=== PATIENT | female | born 1970 | race African-American/Black ===

== ENCOUNTER 2019-11-19 15:26 | Emergency (ER) | payer BC, SELFPAY ==
[2019-11-19 15:35] VITALS: BP 146/81; PULSE 73; RESP 18; TEMP 37.4; O2SAT 100
[2019-11-19 15:43] VITALS: O2SAT 100
[2019-11-19 16:17] VITALS: PULSE 73
[2019-11-19] MEDS: PHENYTOIN SODIUM 100 MG CAP 200 MG PO (16:25)
[2019-11-19 16:38] LABS: Basophils Percent Auto 0.5 % (0.2-1.2); Eosinophils Absolute Auto 0.1 K/mm3 (0-0.3); Eosinophils Percent Auto 0.9 % (0-4.4); Hematocrit 36.5 % (37.0-47.0); Hemoglobin 11.7 g/dL (12.0-15.0); Immature Granulocyte Absolute 0.01 K/mm3 (0.00-0.031); Immature Granulocyte Percent A 0.2 % (0-0.5); Lymphocytes Absolute Auto 2.45 K/mm3 (0.9-3.2); Lymphocytes Percent Auto 38.5 % (18.3-44.2); Mean Corpuscular HGB Conc 32.1 g/dl (32-36); Mean Corpuscular Volume 90.6 fl (80-100); Mean Platelet Volume 9.4 fl (7.4-10.4); Monocytes Absolute Auto 0.6 K/mm3 (0.1-0.6); Monocytes Percent Auto 8.6 % (2.6-8.5); Neutrophils Absolute Auto 3.3 K/mm3 (1.3-6.7); Neutrophils Percent Auto 51.3 % (45.5-73.1); Platelet Count Result 251 k/mm3 (150-375); Red Blood Count 4.03 M/mm3 (4.2-5.4); Red Cell Distribution Width 13.8 % (11.5-14.5); White Blood Count 6.4 K/mm3 (4.5-10.0)
[2019-11-19 16:52] LABS: Alanine Aminotransferase 14 U/L (4-35); Albumin Level 4.4 g/dL (3.5-5.1); Alkaline Phosphatase 105 U/L (38-126); Aspartate Amino Transferase 21 U/L (14-36); Bilirubin,Total 0.2 mg/dL (0.2-1.3); Blood Urea Nitrogen 11 mg/dL (7-17); Calcium 8.6 mg/dL (8.4-10.2); Carbon Dioxide 24 mmol/L (22-30); Chloride 107 mmol/L (98-107); Estimated CRCL calculation 120 ml/min; Estimated Glomerular Filt Rate > 60; Glucose 102 mg/dL (65-105); Phenytoin Dilantin 8 ug/mL (10-20); Potassium 4.1 mmol/L (3.4-5.0); Sodium 136 mmol/L (137-145)
--- NOTE | 2019-11-19 17:29 | ED.SEIZURE ---
HPI - Seizure General Chief Complaint: Seizure Stated Complaint: pre-seizure feeling Time Seen by Provider: 11/19/19 15:58 Source: patient Mode of arrival: ambulatory Limitations: no limitations History of Present Illness HPI Narrative: This is a 49-year-old female that presents the emergency department for medication refill. Reports she has history of seizures for which she takes phenytoin. She sees a neurologist, but [place]. Reports she ran out of her medication yesterday. Reports today she had a feeling that she might have a seizure so she came to be seen. Reports her last seizure was a month ago. Denies fever, chest pain, shortness of breath, abdominal pain, vomiting, numbness or weakness. Seizure History: Yes Related Data Home Medications Medication Instructions Recorded Confirmed phenytoin sodium extended 200 PO BID 11/19/19 Allergies Allergy/AdvReac Type Severity Reaction Status Date / Time No Known Allergies Allergy Verified 11/19/19 15:44 Review of Systems Review of Systems: Narrative: CONSTITUTIONAL: Denies fever GASTROINTESTINAL: Denies vomiting NEUROLOGIC: Denies headache, numbness, or weakness. All systems reviewed & are unremarkable except as noted in HPI and below PMFSH Past Medical History Medical History (Updated 11/19/19 @ 17:36 by Diann Barcenas PA-C) History of seizures Social History Social History (Updated 11/19/19 @ 17:38 by Diann Barcenas PA-C) Substance use: never Gender identity (if verbalized by the patient): Female Exam Narrative: Exam Narrative: GENERAL: Well-appearing, well-nourished, and in no acute distress. HEAD: Normocephalic, atraumatic. EYES: PERRLA and EOMI. ENT: Nares clear, no rhinorrhea or epistaxis. Mucous membranes moist. Oropharynx without tonsillar hypertrophy exudate or other lesions. Bilateral TMs pearly mon non-bulging NECK: Supple. No adenopathy or masses. CHEST: Clear to auscultation. No respiratory distress. No wheezes rales or rhonchi HEART: Regular rate and rhythm. No murmur heard. Normal peripheral pulses. EXTREMITIES: Normal range of motion. No edema. SKIN: Warm, dry, no rash. NEURO: No focal deficits. Alert and oriented x3. Cranial nerves II through XII grossly intact PSYCH: Normal mood and affect Course Vital Signs Vital signs: Vital Signs Temperature 99.3 F 11/19/19 15:35 Pulse Rate 73 11/19/19 15:35 Respiratory Rate 18 11/19/19 15:35 Blood Pressure 146/81 H 11/19/19 15:35 Pulse Oximetry 100 11/19/19 15:35 Temperature 99.3 F 11/19/19 15:35 Pulse Rate 73 11/19/19 16:17 Respiratory Rate 18 11/19/19 15:35 Blood Pressure 146/81 H 11/19/19 15:35 Pulse Oximetry 100 11/19/19 15:43 MDM - Seizure MDM Narrative Medical decision making narrative: Patient presents the emergency department for medication refill. Reports she recently ran out of her seizure medication due [place] Patient has history of seizures and takes phenytoin. Seems to be fairly well controlled on this. Patient currently has no complaints. CBC and metabolic panel are without acute findings. Phenytoin level is 8. Patient given a dose of oral phenytoin in the ED. She will be prescribed medication for home until she is able to see her neurologist. I also will give her the name of our on-call neurologist if needed. Patient stable and felt appropriate for further outpatient evaluation. She was given warnings to return to the ER Lab Data Attestation: I reviewed the patient's lab results. Result diagrams: 11/19/19 16:29 11/19/19 16:29 Labs: Lab Results 11/19/19 11/19/19 Range/Units 16:29 16:29 WBC 6.4 (4.5-10.0) K/mm3 RBC 4.03 L (4.2-5.4) M/mm3 Hgb 11.7 L (12.0-15.0) g/dL Hct 36.5 L (37.0-47.0) % MCV 90.6 (80-100) fl MCH 29.0 (26-34) pg MCHC
[2019-11-19 18:05] VITALS: BP 121/78; PULSE 73; RESP 16; O2SAT 100
== END 2019-11-19 18:15 | disposition home or self-care (01) ==
PROVIDERS: Physician Assistant; Emergency Provider Emergency Medicine
DX: G40.909 Epilepsy, unspecified, not intractable, without status epilepticus (principal)
CPT/HCPCS: 36415; 80053; 80185; 85025; 99283; A9270

== ENCOUNTER 2019-12-14 17:11 | Emergency (ER) | payer BC, SELFPAY ==
[2019-12-14 17:18] VITALS: BP 151/81; PULSE 68; RESP 18; TEMP 36.6; O2SAT 99
[2019-12-14 17:46] LABS: Basophils Percent Auto 0.2 % (0.2-1.2); Eosinophils Absolute Auto 0.1 K/mm3 (0-0.3); Eosinophils Percent Auto 0.8 % (0-4.4); Hematocrit 38.1 % (37.0-47.0); Hemoglobin 12.4 g/dL (12.0-15.0); Immature Granulocyte Absolute 0.01 K/mm3 (0.00-0.031); Immature Granulocyte Percent A 0.2 % (0-0.5); Lymphocytes Percent Auto 35.9 % (18.3-44.2); Mean Corpuscular HGB Conc 32.5 g/dl (32-36); Monocytes Absolute Auto 0.5 K/mm3 (0.1-0.6); Neutrophils Absolute Auto 3.4 K/mm3 (1.3-6.7); Neutrophils Percent Auto 54.9 % (45.5-73.1); Platelet Count Result 255 k/mm3 (150-375); Red Blood Count 4.28 M/mm3 (4.2-5.4); Red Cell Distribution Width 13.3 % (11.5-14.5); White Blood Count 6.1 K/mm3 (4.5-10.0)
[2019-12-14] MEDS: PHENYTOIN SODIUM 100 MG CAP 200 MG PO (17:48)
[2019-12-14 17:58] LABS: Alanine Aminotransferase 13 U/L (4-35); Albumin Level 4.1 g/dL (3.5-5.1); Alkaline Phosphatase 98 U/L (38-126); Aspartate Amino Transferase 20 U/L (14-36); Bilirubin,Total 0.2 mg/dL (0.2-1.3); Blood Urea Nitrogen 8 mg/dL (7-17); Calcium 8.7 mg/dL (8.4-10.2); Carbon Dioxide 22 mmol/L (22-30); Chloride 106 mmol/L (98-107); Estimated CRCL calculation 103 ml/min; Estimated Glomerular Filt Rate > 60; Glucose 135 mg/dL (65-105); Potassium 3.9 mmol/L (3.4-5.0); Sodium 136 mmol/L (137-145)
--- NOTE | 2019-12-14 18:09 | ED.SEIZURE ---
HPI - Seizure General Chief Complaint: Seizure Stated Complaint: seizure? Time Seen by Provider: 12/14/19 17:16 Source: patient Mode of arrival: ambulatory Limitations: no limitations History of Present Illness HPI Narrative: Patient is a 49-year-old female who presents to emergency department for evaluation of feeling like she may have a seizure patient notes history of seizure disorder patient notes that she is currently out of her medication and has follow-up with her neurologist at the end of the month patient notes that she had felt she was having a possible aura and was concerned Seizure History: Yes Related Data Allergies Allergy/AdvReac Type Severity Reaction Status Date / Time No Known Allergies Allergy Verified 12/14/19 17:31 Review of Systems Review of Systems: All systems reviewed & are unremarkable except as noted in HPI and below PMFSH Past Medical History Medical History History of seizures Social History Social History Substance use: never Gender identity (if verbalized by the patient): Female Exam Narrative: Exam Narrative: GENERAL: Well-appearing, well-nourished, and in no acute distress. HEAD: Normocephalic, atraumatic. EYES: PERRLA and EOMI. ENT: Nares clear, no rhinorrhea or epistaxis. Mucous membranes moist. CHEST: Clear to auscultation. No respiratory distress. No wheezes rales or rhonchi HEART: Regular rate and rhythm. No murmur heard. EXTREMITIES: Normal range of motion. No edema. SKIN: Warm, dry, no rash. NEURO: No focal deficits. Alert and oriented x3. Cranial nerves II through XII grossly intact. Normal speech and gait PSYCH: Normal mood and affect. Course Course Emergency Course: Patient in the room in no distress given seizure medication in the emergency department patient will be discharged home have her medications filled and advised to continue to follow with her planned visit with neurology Vital Signs Vital signs: Vital Signs Temperature 98 F 12/14/19 17:18 Pulse Rate 68 12/14/19 17:18 Respiratory Rate 18 12/14/19 17:18 Blood Pressure 151/81 H 12/14/19 17:18 Pulse Oximetry 99 12/14/19 17:18 Temperature 98 F 07/12/20 17:18 Pulse Rate 68 12/14/19 17:18 Respiratory Rate 18 12/14/19 17:18 Blood Pressure 151/81 H 12/14/19 17:18 Pulse Oximetry 99 12/14/19 17:18 MDM - Seizure MDM Narrative Medical decision making narrative: Patient with history of seizure disorder given medication in the emergency department will have a prescription filled advised to follow with neurology as planned given reasons to return Lab Data Result diagrams: 12/14/19 17:39 12/14/19 17:39 Labs: Lab Results 12/14/19 12/14/19 Range/Units 17:39 17:39 WBC 6.1 (4.5-10.0) K/mm3 RBC 4.28 (4.2-5.4) M/mm3 Hgb 12.4 (12.0-15.0) g/dL Hct 38.1 (37.0-47.0) % MCV 89.0 (80-100) fl MCH 29.0 (26-34) pg MCHC 32.5 (32-36) g/dl RDW 13.3 (11.5-14.5) % Plt Count 255 (150-375) k/mm3 MPV 9.0 (7.4-10.4) fl Immature Gran % (Auto) 0.2 (0-0.5) % Neut % (Auto) 54.9 (45.5-73.1) % Lymph % (Auto) 35.9 (18.3-44.2) % [place] % (Auto) 8.0 (2.6-8.5) % Eos % (Auto) 0.8 (0-4.4) % Baso % (Auto) 0.2 (0.2-1.2) % Lymph # (Auto) 2.20 (0.9-3.2) K/mm3 [place] # (Auto) 0.5 (0.1-0.6) K/mm3 Eos # (Auto) 0.1 (0-0.3) K/mm3 Baso # (Auto) 0.0 (0.0-0.1) K/mm3 Abs Immat Gran (auto) 0.01 (0.00-0.031) K/mm3 Absolute Neuts (auto) 3.4 (1.3-6.7) K/mm3 Absolute Nucleated RBC 0.0 (0.0-0.012) K/mm3 Nucleated RBC % 0.0 (0.0-0.2) % Sodium 136 L (137-145) mmol/L Potassium 3.9 (3.4-5.0) mmol/L Chloride 106 (98-107) mmol/L Carbon Dioxide 22 (22-30) mmol/L BUN 8 (7-17) mg/dL Creatinine 0.70 (0.7-1.0) mg/dL Estim Creat Clear Calc 103 ml/min Estimated GFR > 6
[2019-12-14 20:18] VITALS: BP 117/74; PULSE 67; RESP 19; TEMP 36.8; O2SAT 100
[2019-12-14 21:07] LABS: Amphetamine Screen Urine Negative (Negative); Barbiturate Screen Urine Negative (Negative); Benzodiazepines Screen Urine Negative (Negative); Cannabinoid Screen Urine Negative (Negative); Cocaine Screen Urine Negative (Negative); Methadone Screen Urine Negative (Negative); Opiate Screen Urine Negative (Negative); Phencyclidine Screen Urine Negative (Negative)
[2019-12-14 21:09] VITALS: BP 126/80; PULSE 66; RESP 18; O2SAT 100
[2019-12-14 21:17] LABS: Add Urine Microscopic? YES; Appearance Urine Clear (Clear); Bilirubin Urine Negative (Negative); Blood Urine 2+ (Negative); Color Urine Yellow (Yellow); Glucose Urine UA Negative (Negative); Ketones Urine Negative (Negative); Leukocyte Esterase Ur Negative LEU/UL (Negative); Mucus Urine Rare /lpf; Nitrate Urine Negative (Negative); Protein Urine Negative (Negative); Specific Grav Ur 1.015 (1.001-1.035); Squamous Epithelial Cell Urine Moderate /hpf (Few); Urobilinogen Urine Negative mg/dL (<2.0); WBC Urine 0-3 /hpf
[2019-12-14 21:43] VITALS: BP 124/77; PULSE 67; RESP 19; TEMP 36.8; O2SAT 100
== END 2019-12-14 21:43 | disposition home or self-care (01) ==
LOC: ANHED 18:20
PROVIDERS: Emergency Medicine Emergency Medical Services; Emergency Provider Emergency Medicine
DX: G40.909 Epilepsy, unspecified, not intractable, without status epilepticus (principal)
CPT/HCPCS: 36415; 80053; 80307; 81001; 81025; 85025; 99283; A9270

== ENCOUNTER 2021-08-02 19:36 | Observation (INO) | payer OTHER, MEDICAID, SELFPAY ==
[2021-08-02] VITALS (7 sets, daily range): BP systolic 130–145; BP diastolic 76–96; PULSE 89–130; RESP 18–23; TEMP 37.1; O2SAT 65–99
--- NOTE | ~2021-08-02 | CT_ITS ---
EXAMINATION: CT brain wo con DATE: 08/02/2021 22:19 INDICATION: Seizure activity x2 TECHNIQUE: Computed tomography (CT) of the head was performed without intravenous contrast. The mA wa s adjusted according to patient size. Iterative reconstruction technique was employed. Exam dose: 60 5.33 mGy-cm total exam DLP. COMPARISON: None FINDINGS: No intracranial mass lesion or hemorrhage or cerebrovascular accident. No midline shift or mass effect. Normal ventricular size. Normal mon-white matter differentiation. No subdural or epidur al hematoma. No skull fracture or bone destruction. Included paranasal sinuses and mastoid air cells are normally developed and aerated. IMPRESSION: Negative Reviewed, dictated and finalized at [facility] Reviewed, dictated and finalized at [facility]. GN SUPERVISOR IMPRESSION: Negative
--- NOTE | ~2021-08-02 | XR_ITS ---
XR elbow RT min 3V DATE: 08/02/2021 20:26 INDICATION: Fall. Right elbow pain. TECHNIQUE: 4 views COMPARISON: None FINDINGS: No fracture or dislocation or joint effusion. No periosteal reaction or bone destruction. IMPRESSION: Negative Reviewed, dictated and finalized at [facility] UTE RESOLUTION SPECIALIST IMPRESSION: Negative
--- NOTE | 2021-08-02 19:50 | ECG_ITS ---
Measurements Intervals [place] Rate: 111 P: 53 [place]: 175 QRS: -2 QRSD: 91 T: 28 QT: 332 QTc: 451 Interpretive Statements SINUS TACHYCARDIA MODERATE VOLTAGE CRITERIA FOR LVH, CONSIDER NORMAL VARIANT [MEETS CRITERIA IN ONE OF: R(aVL), S(V1), R(V5), R(V5/V6)+S(V1)] NONSPECIFIC ST & T-WAVE ABNORMALITY ABNORMAL ECG NO PREVIOUS ECG AVAILABLE FOR COMPARISON Electronically Signed On 08-03-2021 9:04:58 FISHERMAN HELPER by Lincoln Lawson M.D.
[2021-08-02 20:13] LABS: Basophils Percent Auto 0.4 % (0.2-1.2); Eosinophils Absolute Auto 0.1 K/mm3 (0-0.3); Eosinophils Percent Auto 1.2 % (0-4.4); Hematocrit 38.8 % (37.0-47.0); Hemoglobin 11.8 g/dL (12.0-15.0); Immature Granulocyte Absolute 0.03 K/mm3 (0.00-0.031); Immature Granulocyte Percent A 0.4 % (0-0.5); Lymphocytes Absolute Auto 2.73 K/mm3 (0.9-3.2); Lymphocytes Percent Auto 33.1 % (18.3-44.2); Mean Corpuscular HGB Conc 30.4 g/dl (32-36); Mean Corpuscular Hemoglobin 28.4 pg (26-34); Mean Corpuscular Volume 93.5 fl (80-100); Mean Platelet Volume 9.6 fl (7.4-10.4); Monocytes Absolute Auto 0.5 K/mm3 (0.1-0.6); Monocytes Percent Auto 6.1 % (2.6-8.5); Neutrophils Absolute Auto 4.9 K/mm3 (1.3-6.7); Neutrophils Percent Auto 58.8 % (45.5-73.1); Platelet Count Result 299 k/mm3 (150-375); Red Blood Count 4.15 M/mm3 (4.2-5.4); Red Cell Distribution Width 13.8 % (11.5-14.5); White Blood Count 8.3 K/mm3 (4.5-10.0)
[2021-08-02 20:27] LABS: Alanine Aminotransferase 16 U/L (4-35); Albumin Level 4.5 g/dL (3.5-5.1); Alkaline Phosphatase 132 U/L (38-126); Anion Gap 17 mmol/L (8-16); Aspartate Amino Transferase 24 U/L (14-36); Bilirubin,Total 0.1 mg/dL (0.2-1.3); Blood Urea Nitrogen 7 mg/dL (7-17); Calcium 8.3 mg/dL (8.4-10.2); Carbon Dioxide 13 mmol/L (22-30); Chloride 110 mmol/L (98-107); Estimated CRCL calculation 97 ml/min; Estimated Glomerular Filt Rate > 60; Glucose 173 mg/dL (65-110); Potassium 4.3 mmol/L (3.4-5.0); Sodium 140 mmol/L (137-145)
[2021-08-02 20:51] LABS: Add Urine Microscopic? YES; Appearance Urine Clear (Clear); Bilirubin Urine Negative (Negative); Blood Urine 3+ (Negative); Color Urine Colorless (Yellow); Glucose Urine UA Negative (Negative); Ketones Urine Negative (Negative); Leukocyte Esterase Ur Negative LEU/UL (Negative); Mucus Urine Rare /lpf; Nitrate Urine Negative (Negative); Protein Urine 1+ mg/dL (Negative); Specific Grav Ur 1.009 (1.001-1.035); Squamous Epithelial Cell Urine Occasional /hpf (Few); Urobilinogen Urine Negative mg/dL (<2.0); WBC Urine 0-3 /hpf
[2021-08-02 21:00] LABS: Phenytoin Dilantin < 3 ug/mL (10-20)
[2021-08-02] MEDS: levETIRAcetam 1000MG/NACL100ML 1,000 MG/100 ML BAG 400 MG IVPB (21:51)
--- NOTE | 2021-08-02 22:08 | ED.SEIZURE ---
HPI - Seizure General Chief Complaint: Seizure Stated Complaint: SEIZURE X 2 Time Seen by Provider: 08/02/21 21:42 Source: family, EMS, RN notes reviewed and old records reviewed History of Present Illness HPI Narrative: Patient brought in for her seizures. Patient has known seizure disorder on chart review she has had multiple times the ER for medication refills. Per EMS patient is known to be noncompliant with her medications. Patient had 2 seizures at home family heard her fall called the ambulance and brought her to the ER for evaluation. EMS noted her to be postictal and she was post low in the ER. She appeared to be coming to was alert and oriented x4 and then had recurrent seizure just prior to my evaluation. Seizure History: Yes Related Data Home Medications Medication Instructions Recorded Confirmed levetiracetam [Keppra] 500 mg PO BID 08/02/21 08/02/21 Allergies Allergy/AdvReac Type Severity Reaction Status Date / Time No Known Allergies Allergy Verified 12/14/19 17:31 Review of Systems Review of Systems: ROS unobtainable: Yes unobtainable due to medical condition PMFSH Past Medical History Medical History (Updated 08/03/21 @ 02:10 by Júnior Tian MD) History of seizures Social History Social History Smoking status: Never smoker Alcohol intake: current Drinks per week: 1 Substance use: never Gender identity (if verbalized by the patient): Female Spiritual care concerns: No Exam Narrative: GENERAL: Unresponsive no active seizure-like activity HEAD: Normocephalic, atraumatic. EYES: PERRLA and EOMI. ENT: Nares clear, no rhinorrhea or epistaxis. Mucous membranes moist. NECK: Supple. No masses. No JVD CHEST: Clear to auscultation. No respiratory distress. No wheezes rales or rhonchi HEART: Regular rate and rhythm. No murmur heard. Normal peripheral pulses. ABDOMEN: Soft, nontender, nondistended, normal active bowel sounds. EXTREMITIES: Normal range of motion. No edema. SKIN: Warm, dry, no rash. NEURO: Somnolent drooling response to noxious stimuli Course Reevaluation(s) Reevaluation #1: Patient continues to recover from her most recent seizure due to multiple seizures this evening patient will be admitted for stabilization of seizures and further evaluation. Patient is comfortable with inpatient plan. Case cussed with neurology as well as hospitalist team will admit for further evaluation Date: 08/02/21 Time: 23:26 Vital Signs Vital signs: Vital Signs Temperature 37.1 C 08/02/21 19:39 Pulse Rate 130 H 08/02/21 19:39 Respiratory Rate 20 08/02/21 19:39 Blood Pressure 130/82 08/02/21 19:39 Pulse Oximetry 99 08/02/21 19:39 Temperature 36.3 C L 08/03/21 06:00 Pulse Rate 85 08/03/21 06:00 Respiratory Rate 20 08/03/21 06:00 Blood Pressure 118/60 08/03/21 06:00 Pulse Oximetry 98 08/03/21 06:00 MDM - Seizure MDM Narrative Medical decision making narrative: Patient presented with multiple seizures had a recurrent seizure while in the ER. Patient does not have a neurologist and does not know the name of her medications there is been multiple ER visits where she is here for medication refills of her Dilantin. Labs obtained and were unremarkable and negative for antiepileptic therapies. Imaging was unremarkable. Given patient's multiple seizures while I'm in the ER patient be admitted for further evaluation. Case cussed with neurology and hospitalist team. Lab Data Result diagrams: 08/02/21 20:05 08/02/21 20:05 Labs: Lab Results 08/02/21 08/02/21 08/02/21 Range/Units 20:05 20:05 20:32 WBC 8.3 (4.5-10.0) K/mm3 RBC 4.15 L (4.2-5.4) M/mm3 Hgb 11.8 L (12.0-15.0) g/dL Hct 38.8 (37.0-47.0) % MCV 93.5 (80-100) fl MCH 28.4 (26-34) pg MCHC 30.4 L (32-36) g/dl RDW 13.8 (11.5-14.5) % Plt Count 299 (150-375)
--- NOTE | 2021-08-02 23:04 | PM.IMHP ---
H&P: HPI History of Present Illness Date/Time: 08/02/21 23:04 Chief Complaint: Seizure. Narrative: This is a 51-year-old female with past medical history significant for seizure disorder. Patient was brought today to the emergency room after her significant other witnessed 2 seizures according to her significant other she was shaking and she had loss of consciousness the 2nd time around he called EMS. Upon arrival to emergency room patient was postictal and she was witnessed to have another seizure while in the emergency room patient was loaded with Keppra. Levels of Dilantin and Keppra were nondetectable. According to significant or the patient had been in her usual state of health. At the time of my visit patient was post ictal unable to give any history. Preliminary workup was essentially nonrevealing. Review of Systems Review of Systems: ROS unobtainable: Yes unobtainable due to medical condition (Post ictal) PMFSH Past Medical History Medical History (Updated 08/03/21 @ 02:10 by Júnior Tian MD) History of seizures Social History Social History Substance use: never Gender identity (if verbalized by the patient): Female Meds Home Medications and Allergies Home Medications Medication Instructions Recorded Confirmed Type phenytoin sodium extended 200 mg PO BID 14 Days #56 cap 11/19/19 08/02/21 Rx levetiracetam [Keppra] 500 mg PO BID 08/02/21 08/02/21 History Allergies Allergy/AdvReac Type Severity Reaction Status Date / Time No Known Allergies Allergy Verified 12/14/19 17:31 Vital Signs Vital Signs - 24 hr 08/02/21 19:39 08/02/21 21:00 08/02/21 21:57 Temperature 98.7 F Pulse Rate 130 H 89 Respiratory Rate 20 22 H Blood Pressure 130/82 134/79 Pulse Oximetry 99 94 65 L 08/02/21 22:30 08/02/21 22:32 08/02/21 22:45 Temperature Pulse Rate 107 H 119 H 106 H Respiratory Rate 22 H 23 H 18 Blood Pressure 130/76 145/96 H Pulse Oximetry 95 91 95 08/02/21 22:55 Temperature Pulse Rate Respiratory Rate Blood Pressure Pulse Oximetry 95 Exam Narrative: Patient is laying in a stretcher she is postictal Const: General: comfortable, no acute distress, well developed and other (Post kicked) Nutritional Appearance: average body habitus Orientation/consciousness: patient obtunded HENMT: Head: normal to inspection, normocephalic and atraumatic Ears: hearing grossly normal bilaterally General nose exam: Normal external nose present Face and sinus: normal facial exam Mouth: Yes Normal oral and palatal mucosa present Eyes: General: appearance normal, both eyes and all related structures Alignment and Position: alignment normal Sclera: sclerae normal Pupils: Equal, round and reactive pupils present EOM: EOMs intact bilaterally Neck: Neck: normal visual inspection, full ROM, no lymphadenopathy, supple and no JVD Thyroid: thyroid normal Lymphatic: no lymphadenopathy noted Resp: Effort & Inspection: normal respiratory effort and able to speak in complete sentences Auscultation: clear to auscultation bilaterally, no crackles, no rales, no rhonchi and no wheezes Cardio: Jugular venous distension: no JVD Rate: regular rate Rhythm: regular rhythm Heart sounds: S1 normal heart sound present and S2 normal heart sound present GI: Inspection: normal to inspection GI Palp: Yes Soft to palpation, No Tenderness to palpation present (GI), No Guarding due to palpation present (GI), Yes No hepatosplenomegaly present and No Rebound tenderness present : General: Yes deferred Skin: Rashes: no rashes Wounds: no wounds Neuro: General: CN's II-XI intact bilaterally and other (Post ictal) Cranial nerves: Yes CN's II-XII intact bilaterally and Yes Equal, round and reactive pupils present Cognition (Neuro): abnormal cognition Speech: normal speech Motor exam (neuro): 5/5 motor strength present throughout Extrem: General: normal
[2021-08-03] VITALS (9 sets, daily range): BP systolic 118–135; BP diastolic 57–80; PULSE 74–93; RESP 16–20; TEMP 35.8–37.3; O2SAT 98–100; BMI 39.6
[2021-08-03 01:14] LABS: SARS-CoV-2 RNA PCR Positive
--- NOTE | 2021-08-03 02:13 | ADMGEN ---
This patient, Raquel Becerra, was admitted to [address] [place] [address] Room 304-02. Patient/family oriented to hospital policies and general routines including ID bracelet, bed and alarms, visiting hours, pain management, procedures, bathroom and other care routines, personal items, smoking policy, room service/diet, and visiting hours. Information on how to activate the Rapid Response Team has been discussed. Patient/Family are encouraged to report perceived risks to care and to ask questions if they do not understand what they are told or what they should do.
[2021-08-03] MEDS: SODIUM CHLORIDE 0.9% IV 1,000 ML 125 ML IV CONT ×3 (03:43→16:56)
[2021-08-03] MEDS: levETIRAcetam 1000MG/NACL100ML 1,000 MG/100 ML BAG 400 MG IVPB ×2 (09:45→21:06)
[2021-08-03] MEDS: ACETAMINOPHEN 325 MG TABLET 650 MG PO (09:46)
--- NOTE | 2021-08-03 12:36 | WPDNEUROPN ---
Progress Note: A&P Additional Plan known case of seizure disorder with poor compliance and poor follow-up taking Keppra 500 mg p.o. b.i.d. at this stage her mental status is normal and so is the neurological examination she can be discharged with instruction for the follow-up and the treatment can be continued as such Time Spent With Patient Time with patient: less than 15 minutes Subjective Date/time seen: 08/03/21 12:36 51 years old right-handed female known case of seizure disorder brought into the emergency room with history of having had 2 seizures at home when the family heard her fall call the ambulance and brought her to the emergency room she is a known case of seizure disorder and has been to the [facility] ER multiple times for the medication refill, she is not allergic to any medication she is supposedly taking Keppra 500 mg p.o. b.i.d. and has ongoing history of seizure disorder, was never a smoker but current alcohol intake Review of Systems Review of Systems: All systems reviewed & are unremarkable except as noted in HPI and below Exam Const: General: cooperative, healthy appearing, comfortable and no acute distress Nutritional Appearance: overweight Orientation/consciousness: oriented to person, oriented to place, oriented to time and patient oriented x3 Limitations: no limitations HENMT: Head: normocephalic Ears: hearing grossly normal bilaterally General nose exam: Normal external nose present Face and sinus: normal facial exam Eyes: General: appearance normal, both eyes and all related structures Visual Pratt: normal visual pratt by confrontation Alignment and Position: alignment normal Periorbital: periorbital findings normal Eyelids: eyelids normal Conjunctivae: conjunctivae normal Sclera: sclerae normal Cornea: corneas normal Pupils: Equal, round and reactive pupils present EOM: EOMs intact bilaterally Direct Ophthalmoscopy: normal light reflex Neck: Neck: normal visual inspection and full ROM Carotids: normal carotid upstroke Resp: Effort & Inspection: normal respiratory effort and able to speak in complete sentences Auscultation: clear to auscultation bilaterally Cardio: Jugular venous distension: no JVD Rate: regular rate Rhythm: regular rhythm Neuro: General: oriented to person, oriented to place and oriented to time Cranial nerves: Yes CN's II-XII intact bilaterally Cognition (Neuro): normal cognition Speech: normal speech Gait exam (Neuro): Normal gait present Motor exam (neuro): 5/5 motor strength present throughout Sensory Exam: normal sensation Deep tendon reflexes (DTR's): Right triceps reflex intensity grade: 1+, Left triceps reflex intensity grade: 1+, Rt Biceps (C5, C6): 1+, Left biceps reflex intensity grade: 1+, Right brachioradialis reflex intensity grade: 1+, Left brachioradialis reflex intensity grade: 1+, Right patellar reflex intensity grade: 1+, Left patellar reflex intensity grade: 1+, Right ankle reflex intensity grade: 1+ and Left ankle reflex intensity grade: 1+ Plantar Reflex Responses: downgoing: bilateral Coordination: [id number] test normal Psych: Mental Status: mental status grossly normal Speech and movement: Normal speech and movement present Affect: normal affect Attitude: cooperative Thought process: Normal thought process present Thought content: Yes Normal thought content present Insight: Fair insight present (Psych) Judgement: Fair judgement present (Psych) Objective Data Vital Signs Vital Signs: Vital Signs - 24 hr 08/02/21 19:39 08/02/21 21:00 08/02/21 21:57 Temperature 37.1 C Pulse Rate 130 H 89 Respiratory Rate 20 22 H Blood Pressure 130/82 134/79 Pulse Oximetry 99 94 65 L 08/02/21 22:30 08/02/21 22:32 08/02/21 22:45 Temperature Pulse Rate 107 H 119 H 106 H Respiratory Rate 22 H 23 H 18 Blood Pressure 130/76 145/96 H Pulse Oximetry 95 91 95 08/02/21 22:55 08/03/21 02:00 08/03/21 02:15 Temperature 36.1 C L Pulse Rate
--- NOTE | 2021-08-03 17:07 | PM.IMPN ---
Progress Note: A&P Assessment and Plan (1) Breakthrough seizure: Code(s): G40.919 - Epilepsy, unspecified, intractable, without status epilepticus Status: Acute Assessment and Plan: pt is non compliant to her medications pt seen by neurology loaded with iv keppra ct head is negative phenytoin level is low seizure precautions continue to monitor Subjective Date/time seen: 08/03/21 17:07 Interval history: 51-year-old female with past medical history significant for seizure disorder. Patient was brought today to the emergency room after her significant other witnessed 2 seizures according to her significant other she was shaking and she had loss of consciousness the 2nd time around he called EMS. Pt is postictal presently drowsy in the room. No further seizures reported by the nurses. Pt seen by neurology. Review of Systems Review of Systems: All systems reviewed & are unremarkable except as noted in HPI and below Constitutional: Constitutional: Denies excessive sweating, Denies fatigue, Denies frequent falls and Denies headache(s) ENT: Denies headache(s) Cardiovascular: Cardiovascular: Denies chest pain, Denies irregular heart rhythm, Denies dyspnea and Denies dyspnea on exertion Respiratory: Respiratory: Denies cough, Denies hemoptysis, Denies dyspnea, Denies dyspnea on exertion and Denies wheezing Gastrointestinal: Gastrointestinal: Denies abdominal pain and Denies change in bowel habits Musculoskeletal: Musculoskeletal: Denies no additional musculoskeletal complaints, Denies limited range of motion and Denies numbness Neurologic: Denies frequent falls, Denies headache(s), Denies numbness and Denies convulsions Psychiatric: Psychiatric: Denies hallucinations and Denies tactile hallucinations Endocrine: Endocrine: Denies excessive sweating, Denies fatigue and Denies flushing Allergic/Immunologic: Allergic/Immunologic: Denies wheezing Exam Const: General: in distress Other: Drowsy postictal HENMT: Head: normal to inspection Resp: Effort & Inspection: no respiratory distress Auscultation: no rhonchi and no wheezes Cardio: Rate: regular rate Rhythm: regular rhythm GI: Inspection: normal to inspection GI Palp: No abdominal tenderness, No Guarding due to palpation present (GI) and No Hepatomegaly present Auscultation: normal bowel sounds Neuro: General: oriented to person Objective Data Vital Signs Vital Signs: Vital Signs - 24 hr 08/02/21 19:39 08/02/21 21:00 08/02/21 21:57 Temperature 37.1 C Pulse Rate 130 H 89 Respiratory Rate 20 22 H Blood Pressure 130/82 134/79 Pulse Oximetry 99 94 65 L 08/02/21 22:30 08/02/21 22:32 08/02/21 22:45 Temperature Pulse Rate 107 H 119 H 106 H Respiratory Rate 22 H 23 H 18 Blood Pressure 130/76 145/96 H Pulse Oximetry 95 91 95 08/02/21 22:55 08/03/21 02:00 08/03/21 02:15 Temperature 36.1 C L Pulse Rate 80 93 Respiratory Rate 18 18 Blood Pressure 135/80 123/71 Pulse Oximetry 95 100 99 08/03/21 04:00 08/03/21 06:00 08/03/21 08:00 Temperature 36.3 C L 36.3 C L 35.8 C L Pulse Rate 85 85 86 Respiratory Rate 20 20 20 Blood Pressure 118/60 118/60 128/57 L Pulse Oximetry 98 98 98 08/03/21 12:00 08/03/21 13:44 Temperature 37.2 C Pulse Rate 75 82 Respiratory Rate 16 Blood Pressure 126/71 Pulse Oximetry 98 Intake/Output Intake/Output: Intake & Output 07/31/21 08/01/21 08/02/21 08/03/21 23:59 23:59 23:59 23:59 Intake Total 100 1658 Balance 100 1658 Meds/Results Medications: Active Medications Generic Name Dose Route Start Last Admin Trade Name Freq PRN Reason Stop Dose Admin Acetaminophen 650 mg 08/03/21 06:33 08/03/21 09:46 Acetaminophen 325 Mg Tablet PO 650 mg Q6H PRN Administration Mild Pain (1-3) or Fever Sodium Chloride 1,000 mls @ 125 mls/hr 08/02/21 23:30 08/03/21 16:56 Normal Saline Iv IV CONT 125 mls/hr .Q8H JARRET Administration Levetiracetam
[2021-08-04] MEDS: ACETAMINOPHEN 325 MG TABLET 650 MG PO (05:10)
[2021-08-04] MEDS: SODIUM CHLORIDE 0.9% IV 1,000 ML 125 ML IV CONT (05:12)
[2021-08-04 06:00] VITALS: BP 113/65; PULSE 71; RESP 18; TEMP 37.2; O2SAT 97
[2021-08-04] MEDS: levETIRAcetam 1000MG/NACL100ML 1,000 MG/100 ML BAG 400 MG IVPB (08:57)
--- NOTE | 2021-08-04 10:26 | PM.DS ---
DS: Admitting Diagnosis Discharge Date 08/04/2021 Admitting Diagnosis Epilepsy DS: Discharge Diagnosis Discharge Diagnosis (1) Breakthrough seizure: Code(s): G40.919 - Epilepsy, unspecified, intractable, without status epilepticus Status: Acute Assessment and Plan: pt is non compliant to her medications pt seen by neurology, provided a loading dose of IV Keppra ct head is negative phenytoin level is low seizure precautions continue to monitor Resume home medications DS: Summary Hospital Course Reason for hospitalization: Epilepsy Hospital Course: Patient is a 51-year-old with a past medical history of epilepsy, medication noncompliance, and obese. The patient was brought to the emergency department after a significant other witnessed 2 seizures. The patient reportedly lost consciousness and was shaking, on the 2nd seizure EMS was called and she was brought to the emergency department. Upon arrival to the emergency department the patient was postictal and was witnessed to have another seizure in the emergency department. At that time she was loaded with Keppra and levels of Dilantin and Keppra were undetectable and labs. A CT of the head was performed which did not reveal acute abnormality. Neurology was consulted from the emergency department. She was placed on home medications of 500 mg of Keppra b.i.d. and follow-up with Neurology within 1 week. Discussed medication compliance with the patient prior to discharge. No acute events witnessed by the RN during the night. Patient reports that she is ready and stable to go home. All questions answered. Of note the patient did test positive for COVID-19 on August 03, 2021. However she was removed off of isolation because she tested positive and was symptomatic with COVID-19 in May 31, 2021. During the encounter on day of discharge the patient was asymptomatic. Infectious control nurse was made aware the patient has positive status. It took the patient off isolation as this is believed to be not an active infection. Status at Discharge Cognitive/behavioral status at discharge: Alert and oriented x4 Functional status at discharge: independent ambulation Overall status at discharge: patient is back to baseline Time Spent with Patient Time attestation: Total time spent providing and/or coordinating discharge services: Time spent: Greater than 30 minutes Exam Narrative: General: No acute distress. Mental Status: Awake, alert and oriented to person, place, and time with clear speech. Skin: Skin in warm, dry and intact without rashes or lesions. Head: Normocephalic and atraumatic. Eyes: Conjunctivae are clear without exudates or hemorrhage. Sclera is non-icteric. EOM are intact, PERRLA. Ears: The external ear and canal are non-tender and without swelling or discharge. Nose: Nasal mucosa is pink and moist. Septum midline. Nares patent bilaterally. Throat: Oral mucosa pink and moist with good dentition. Tongue midline. Neck: The neck supple without adenopathy. Trachea midline. No JVD. Cardiac: S1 and S2 regular rate and rhythm. No murmurs, gallops, or rubs auscultated. Respiratory: Chest wall symmetric, nontender and without deformity or trauma. Respirations even and unlabored. Lung sounds are clear to auscultation in all lobes bilaterally without wheezes, rhonchi, or rales. Abdominal: Abdomen soft, round and non-tender to palpation. Bowel sounds present and normoactive in all 4 quadrants. Spine: Neck and back with grossly normal curvature, no deformity in appearance or signs of trauma. Extremities: Upper and lower extremities atraumatic without tenderness or deformity. Full range of motion and muscle strength 5/5 to all extremities bilaterally. Neurological: Full and symmetric motor and light touch sensation bilaterally. Cranial nerves II-XII grossly intact. Discharge Plan Discharge Attending physician on discharge: Heber Khalil Consulting providers: [facility]
--- NOTE | 2021-08-04 13:34 | PCCCNOTE ---
On 08/04/21, the student, [Marie Love], provided care and completed [facility] documentation on this patient. I have reviewed the student's documentation and agree with the findings.
[2021-08-06 07:33] LABS: Prolactin 97.6 ng/mL (***)
[2021-08-06 15:46] LABS: Levetiracetam Keppra <1.0 mcg/mL (12.0-46.0)
== END 2021-08-04 10:50 | disposition home or self-care (01) ==
LOC: ANHED 23:30 → ANH3MEDSUR 08-03 16:15
PROVIDERS: Admitting Provider Internal Medicine; Emergency Provider Emergency Medicine; Visit Provider Nurse Practitioner Family
DX: G40.919 Epilepsy, unspecified, intractable, without status epilepticus (principal); Z91.14 Patient's other noncompliance with medication regimen; U07.1 COVID-19; E66.9 Obesity, unspecified; Z68.39 Body mass index [BMI] 39.0-39.9, adult
CPT/HCPCS: 36415; 70450; 73080; 80053; 80177; 80185; 81001; 84146; 85025; 93005; 96361; 96365; 96366; 96374; 99285; A9270; C9803; G0378; J1953; J7030; U0003; U0005

== ENCOUNTER 2023-07-16 19:44 | Emergency (ER) | payer OTHER, MEDICAID, SELFPAY ==
[2023-07-16 19:57] VITALS: BP 153/100; PULSE 108; RESP 15; TEMP 36.5; O2SAT 99
[2023-07-16 20:06] VITALS: PULSE 108
--- NOTE | 2023-07-16 20:41 | ED.SEIZURE ---
HPI - Seizure General Chief Complaint: Seizure Stated Complaint: possible seizure Time Seen by Provider: 07/16/23 19:58 History of Present Illness HPI Narrative: 53-year-old female with history of epilepsy presenting after a seizure. States that her neurologist recently discontinued her phenytoin and increased her Keppra. States that she has been taking her Keppra as prescribed. Tonight her grandson saw her have a generalized tonic-clonic seizure. Lasted 1-2 minutes and they called EMS. She was postictal on the ride here but she has now returned to baseline. She currently denies any complaints. Denies any recent infectious symptoms. Seizure History: Yes Related Data Home Medications Medication Instructions Recorded Confirmed levetiracetam 500 mg tablet 500 mg PO BID 08/02/21 08/02/21 (Keppra) Allergies Allergy/AdvReac Type Severity Reaction Status Date / Time No Known Allergies Allergy Verified 12/14/19 17:31 Review of Systems Review of Systems: All systems reviewed & are unremarkable except as noted in HPI and below PMFSH Past Medical History Medical History (Updated 07/16/23 @ 21:33 by Isabel Meyers MD) History of seizures Social History Social History Smoking status: Never smoker Alcohol intake: current Drinks per week: 1 Substance use: never Gender identity (if verbalized by the patient): Female Spiritual care concerns: No Exam Narrative: GENERAL: Well-appearing, in no acute distress, pleasant cooperative HEAD: Normocephalic, atraumatic. EYES: PERRLA and EOMI. ENT: Mucous membranes moist. NECK: Supple. CHEST: Clear to auscultation. No respiratory distress. HEART: Regular rate and rhythm ABDOMEN: Soft, nontender, nondistended EXTREMITIES: Normal range of motion. No edema. SKIN: Warm, dry, no rash. NEURO: No focal deficits. Alert and oriented x3. PSYCH: Normal mood and affect. Course Vital Signs Vital signs: Vital Signs Temperature 97.7 F 07/16/23 19:57 Pulse Rate 108 H 07/16/23 19:57 Respiratory Rate 15 07/16/23 19:57 Blood Pressure 153/100 H 07/16/23 19:57 Pulse Oximetry 99 07/16/23 19:57 Oxygen Delivery Room Air 07/16/23 19:57 Temperature 97.7 F 07/16/23 19:57 Pulse Rate 108 H 07/16/23 20:06 Respiratory Rate 15 07/16/23 19:57 Blood Pressure 153/100 H 07/16/23 19:57 Pulse Oximetry 99 07/16/23 19:57 Oxygen Delivery Room Air 07/16/23 19:57 MDM - Seizure MDM Narrative Medical decision making narrative: 53-year-old female presenting with a breakthrough seizure. Vitals are stable. On arrival, patient has returned to baseline. She denies any complaints. Blood work without any abnormalities. UA is unremarkable. Patient was loaded with IV Keppra. She continues to feel well. She feels comfortable going home. Advised that she follow-up closely with her neurologist to discuss this breakthrough seizure in the setting of recent medication changes. Appropriate return precautions given. Patient is agreeable to this plan. Discharged in stable condition. Differential Diagnosis Differential diagnosis: Likely generalized seizure and epileptic seizure Medical Records Attestation: I reviewed the patient's medical records. Lab Data Attestation: I reviewed the patient's lab results. 07/16/23 20:37 07/16/23 20:37 Labs: Lab Results 07/16/23 07/16/23 Range/Units 20:37 20:52 WBC 9.4 (4.5-10.0) K/mm3 RBC 4.41 (4.2-5.4) M/mm3 Hgb 12.4 (12.0-15.0) g/dL Hct 39.7 (37.0-47.0) % MCV 90.0 (80-100) fl MCH 28.1 (26-34) pg MCHC 31.2 L (32-36) g/dl RDW 13.5 (11.5-14.5) % Plt Count 318 (150-375) k/mm3 MPV 9.1 (7.4-10.4) fl Immature Gran % (Auto) 0.2 (0-0.5) % Neut % (Auto) 71.4 (45.5-73.1) % Lymph % (Auto) 21.2 (18.3-44.2) % Douglas % (Auto) 6.0 (2.6-8.5) % Eos % (Auto) 1.0 (0-4.4)
[2023-07-16 20:43] LABS: Basophils Percent Auto 0.2 % (0.2-1.2); Eosinophils Absolute Auto 0.1 K/mm3 (0-0.3); Hematocrit 39.7 % (37.0-47.0); Hemoglobin 12.4 g/dL (12.0-15.0); Immature Granulocyte Absolute 0.02 K/mm3 (0.00-0.031); Immature Granulocyte Percent A 0.2 % (0-0.5); Lymphocytes Absolute Auto 1.98 K/mm3 (0.9-3.2); Lymphocytes Percent Auto 21.2 % (18.3-44.2); Mean Corpuscular HGB Conc 31.2 g/dl (32-36); Mean Corpuscular Hemoglobin 28.1 pg (26-34); Mean Platelet Volume 9.1 fl (7.4-10.4); Monocytes Absolute Auto 0.6 K/mm3 (0.1-0.6); Neutrophils Absolute Auto 6.7 K/mm3 (1.3-6.7); Neutrophils Percent Auto 71.4 % (45.5-73.1); Platelet Count Result 318 k/mm3 (150-375); Red Blood Count 4.41 M/mm3 (4.2-5.4); Red Cell Distribution Width 13.5 % (11.5-14.5); White Blood Count 9.4 K/mm3 (4.5-10.0)
[2023-07-16] MEDS: SODIUM CHLORIDE 0.9% IV 1,000 ML 999 ML IV CONT (20:49)
[2023-07-16] MEDS: levETIRAcetam 1000MG/NACL100ML 1,000 MG/100 ML BAG 400 MG IVPB (20:50)
[2023-07-16 20:53] LABS: Alanine Aminotransferase 23 U/L (6-35); Albumin Level 4.4 g/dL (3.5-5.1); Alkaline Phosphatase 142 U/L (38-126); Anion Gap 9 mmol/L (8-16); Aspartate Amino Transferase 31 U/L (14-36); Bilirubin,Total 0.4 mg/dL (0.2-1.3); Blood Urea Nitrogen 7 mg/dL (7-17); Calcium 9.2 mg/dL (8.4-10.2); Carbon Dioxide 25 mmol/L (22-30); Chloride 105 mmol/L (98-107); Estimated CRCL calculation 104 ml/min; Estimated Glomerular Filt Rate > 60; Glucose 148 mg/dL (65-110); Potassium 3.7 mmol/L (3.4-5.0); Sodium 139 mmol/L (137-145)
[2023-07-16 21:04] LABS: Appearance Urine Clear (Clear); Bacteria Urine None Seen /hpf; Bilirubin Urine Negative (Negative); Blood Urine 3+ (Negative); Color Urine Yellow (Yellow); Glucose Urine UA Negative (Negative); Ketones Urine Negative (Negative); Leukocyte Esterase Ur Negative LEU/UL (Negative); Nitrate Urine Negative (Negative); Non Pathogenic Casts 0-2; Protein Urine 2+ mg/dL (Negative); Specific Grav Ur 1.014 (1.001-1.035); Squamous Epithelial Cell Urine None seen /hpf (Few); Urobilinogen Urine 0.2 mg/dL (<2.0); WBC Urine 0-5 /hpf; pH Urine 5.5 (5.0-9.0)
[2023-07-16 21:11] LABS: Add Urine Microscopic? YES
[2023-07-16 21:24] LABS: Amphetamine Screen Urine Negative (Negative); Barbiturate Screen Urine Negative (Negative); Benzodiazepines Screen Urine Negative (Negative); Cannabinoid Screen Urine Negative (Negative); Cocaine Screen Urine Negative (Negative); Methadone Screen Urine Negative (Negative); Opiate Screen Urine Negative (Negative); Phencyclidine Screen Urine Negative (Negative)
[2023-07-16 21:34] VITALS: BP 149/98; PULSE 98; RESP 20; O2SAT 100
[2023-07-16 22:00] VITALS: BP 142/91; PULSE 96; RESP 18; O2SAT 99
== END 2023-07-16 22:03 | disposition home or self-care (01) ==
PROVIDERS: Emergency Provider Emergency Medicine; PCP Family Medicine
DX: G40.909 Epilepsy, unspecified, not intractable, without status epilepticus (principal)
CPT/HCPCS: 36415; 80053; 80307; 81001; 85025; 96365; 99284; J1953; J7030